=== PATIENT | female | born 1985 | race Two or more races ===

== ENCOUNTER → 2019-02-19 11:14 | Outpatient (CLI) | payer OTHER | END | disposition home or self-care (01) | LOC: LAB 11:14 | DX: R10.84 Generalized abdominal pain (principal); J11.89 Influenza due to unidentified influenza virus with other manifestations; J06.9 Acute upper respiratory infection, unspecified ==

== ENCOUNTER 2019-08-18 10:02 | Outpatient (CLI) | payer OTHER | END 2019-08-18 10:18 | disposition home or self-care (01) | LOC: RX STUDY 10:02 | PROVIDERS: ATTEND Obstetrics & Gynecology | DX: N70.03 Acute salpingitis and oophoritis (principal); N97.0 Female infertility associated with anovulation ==